=== PATIENT | male | born 1980 | race Caucasian/White ===

== ENCOUNTER 2018-03-13 07:50 | Day surgery (SDC) | payer OTHER ==
[~2018-03-13] VITALS: Ht 185.4 cm; Wt 136.7 kg
[2018-03-13] MEDS ORDERED: LACTATED RINGERS 1,000 ML IV SCH (08:38)
[2018-03-13] MEDS ORDERED: MIDAZOLAM 1 MG/ML, 2ML ONE (08:57)
[2018-03-13] MEDS ORDERED: FENTANYL PF 250 MCG/5ML ONE ×2 (08:57→10:26)
[2018-03-13] MEDS ORDERED: ROCURONIUM 10MG/ML,5ML ONE (08:58)
[2018-03-13] MEDS ORDERED: PROPOFOL 10 MG/ML, 20ML ONE (08:58)
[2018-03-13] MEDS ORDERED: GLYCOPYRROLATE 0.4 MG/2 ML, 2ML ONE ×2 (08:59→11:19)
[2018-03-13] MEDS ORDERED: NEOSTIGMINE 1 MG/ML, 10ML ONE (08:59)
[2018-03-13] MEDS ORDERED: WATER-INJECTION,STERILE 10 ML IV ONE (08:59)
[2018-03-13] MEDS ORDERED: CEFAZOLIN 1,000 MG ONE ×3 (08:59→10:11)
[2018-03-13] MEDS ORDERED: OxyconTIN ER 20 MG TAB.ER PO ONE (09:00)
[2018-03-13] MEDS ORDERED: ACETAMINOPHEN 500 MG TABLET PO ONE (09:00)
[2018-03-13] MEDS ORDERED: GABAPENTIN 300 MG CAPSULE PO ONE (09:00)
[2018-03-13 09:01] VITALS: BP 131/88
[2018-03-13] MEDS ORDERED: HYDR-3307 PO (09:13)
[2018-03-13] MEDS ORDERED: LISI-170 PO (09:13)
[2018-03-13] MEDS ORDERED: GLYB5TAB3 PO (09:13)
[2018-03-13] MEDS ORDERED: METF500T4 PO (09:13)
[2018-03-13] MEDS ORDERED: THROMBIN 5,000 UNIT VIAL TP ONE (09:36)
[2018-03-13] MEDS ORDERED: VANCOMYCIN 1,000 MG ONE (09:36)
[2018-03-13] MEDS ORDERED: LIDOCAINE/PF 0.5% ,50ML ONE (09:36)
[2018-03-13] MEDS ORDERED: BUPIVACAINE/PF 0.25% ONE (09:36)
[2018-03-13] MEDS ORDERED: EPINEPHRINE 1 MG/ML, 1ML ONE (09:36)
[2018-03-13] MEDS ORDERED: hydrALAzine 20 MG/ML, 1ML ONE ×2 (09:57→10:36)
[2018-03-13] MEDS ORDERED: PROMETHAZINE 25 MG SUPP PR PRN (10:00)
[2018-03-13] MEDS ORDERED: ONDANSETRON ODT 8 MG PO PRN (10:00)
[2018-03-13] MEDS ORDERED: MEPERIDINE/PF 25MG/0.5ML IVPush PRN (10:00)
[2018-03-13] MEDS ORDERED: PROMETHAZINE 12.5 MG SUPP PR PRN (10:00)
[2018-03-13] MEDS ORDERED: OXYcodone 5 MG/5 ML ORAL.SOL UDC PO PRN (10:00)
[2018-03-13] MEDS ORDERED: HYDROmorphone 1 MG/ML, 1ML IV PRN (10:00)
[2018-03-13] MEDS ORDERED: hydrALAzine 20 MG/ML, 1ML IV PRN (10:00)
[2018-03-13] MEDS ORDERED: MORPHINE SULFATE 4 MG/ML, 1ML IVPush PRN (10:00)
[2018-03-13] MEDS ORDERED: LABETALOL 5MG/ML, 20ML IV PRN (10:00)
[2018-03-13] MEDS ORDERED: PROMETHAZINE 25 MG/ML, 1ML IV PRN (10:00)
[2018-03-13] MEDS ORDERED: KETOROLAC 30 MG/1 ML ONE (11:18)
[2018-03-13] MEDS ORDERED: FENTANYL PF 100 MCG/2ML ONE (12:07)
[2018-03-13] MEDS: FENTANYL PF 100 MCG/2ML IV PRN ×2 (12:08→12:14)
[2018-03-13] MEDS ORDERED: MEPERIDINE/PF 25MG/0.5ML ONE (12:23)
[2018-03-13] MEDS ORDERED: DIAZEPAM 5 MG/ML, 2ML IV PRN (12:30)
== END 2018-03-13 16:00 ==
LOC: OUT 07:50
PROVIDERS: ATTEND Orthopaedic Surgery Orthopaedic Surgery of the Spine
DX: M51.16 Intervertebral disc disorders with radiculopathy, lumbar region (principal); E11.9 Type 2 diabetes mellitus without complications; E66.9 Obesity, unspecified; I10 Essential (primary) hypertension; Z68.39 Body mass index [BMI] 39.0-39.9, adult; Z98.890 Other specified postprocedural states
CPT/HCPCS: 72100; 82962; J0171; J0690; J1885; J2001; J2175; J2250; J2704; J2710; J3010; J3360; J3370; J3490; J0360; J7120